=== PATIENT | female | born 1945 | race Caucasian/White ===

== ENCOUNTER 2020-12-09 08:43 | Inpatient (IN) | payer MEDICARE, OTHER ==
[2020-12-09] VITALS (10 sets, daily range): BP systolic 122–158; BP diastolic 58–76
[~2020-12-09] VITALS: Ht 154.9 cm; Wt 59.4 kg
[2020-12-09] MEDS ORDERED: ONDANSETRON HCL/PF 4 MG/2 ML VIAL IVP ONE (09:00)
[2020-12-09] MEDS ORDERED: IV NS 0.9% 1,000 ML BAG IV ONE ×2 (09:00→10:00)
--- NOTE | 2020-12-09 09:00 | NUR ---
[id number] HOME C/O ABDOMINAL PAIN AND HEADACHE SINCE LAST NIGHT. PT IS HYPOTENSIVE PELTS SKINNER. PATIENTS EYES CLOSED, BUT VERBALLY RESPONSIVE, SKIN PALE. PATIENT CONNECTED TO THE MONITOR.
[2020-12-09] MEDS ORDERED: ONDANSETRON HCL/PF 4 MG/2 ML VIAL ONE (09:01)
--- NOTE | 2020-12-09 09:10 | NUR ---
PATIENT IS STILL HYPOTENSIVE FLUIDS INITIATED.
--- NOTE | 2020-12-09 09:20 | NUR ---
EMERGENCY BLOOD TRANSFUSION INITIATED.
[2020-12-09 09:22] LABS: BASOPHILS % (AUTO) 0.1 % (0.0-2.0); HEMATOCRIT 29 % (33-45); HEMOGLOBIN 9.5 g/dL (11.5-14.8); LYMPHOCYTES # (AUTO) 1.2 /CMM (0.8-4.8); LYMPHOCYTES % (AUTO) 5.5 % (20.0-44.0); MEAN CORPUSCULAR HGB CONC 33 g/dl (31.0-36.0); MEAN CORPUSCULAR VOLUME 93 fL (82-100); MONOCYTES # (AUTO) 1.4 /CMM (0.1-1.30); MONOCYTES % (AUTO) 6.5 % (2.0-12.0); NEUTROPHILS # (AUTO) 19.4 /CMM (1.8-8.9); NEUTROPHILS % (AUTO) 87.9 % (43.0-81.0); PLATELET COUNT (AUTO) 236 /CMM (150-450); RED BLOOD CELL COUNT(AUTO) 3.12 MIL/uL (4.0-5.2); WHITE BLOOD COUNT (AUTO) 22.1 K/uL (4.3-11.0)
[2020-12-09 09:47] LABS: CALCIUM, SERUM 8.6 mg/dL (8.5-10.1); CARBON DIOXIDE 24 mmol/L (21-32); CHLORIDE 108 mmol/L (98-107); CREATININE 2.1 mg/dL (0.6-1.3); GLUCOSE 147 mg/dL (74-106); POTASSIUM 4.1 mmol/L (3.5-5.1); SODIUM SERUM 145 mmol/L (136-145); UREA NITROGEN, BLOOD 32 mg/dL (7-18)
--- NOTE | 2020-12-09 09:47 | NUR ---
COVID SWAB SENT.
[2020-12-09] MEDS ORDERED: ALEN35TA51 PO (09:52)
[2020-12-09] MEDS ORDERED: AIMOVIG (09:52)
[2020-12-09] MEDS ORDERED: PRED1TAB PO (09:52)
[2020-12-09] MEDS ORDERED: ASCO500C17 PO (09:52)
[2020-12-09] MEDS ORDERED: RIBO100T6 PO (09:52)
[2020-12-09] MEDS ORDERED: CHOL200010 PO (09:52)
[2020-12-09] MEDS ORDERED: METF-440 PO (09:52)
[2020-12-09] MEDS ORDERED: FLUD0.1T PO (09:52)
[2020-12-09] MEDS ORDERED: MIDO5TAB4 PO (09:52)
[2020-12-09] MEDS ORDERED: FOLI0.8T3 PO (09:52)
[2020-12-09] MEDS ORDERED: IRON PO (09:52)
[2020-12-09] MEDS ORDERED: MAGN400T8 PO (09:52)
[2020-12-09] MEDS ORDERED: APIX5TAB PO (09:52)
[2020-12-09 09:59] LABS: ALANINE AMINOTRANSFERASE 17 U/L (12-78); ALKALINE PHOSPHATASE 33 U/L (46-116); ASPARTATE AMINOTRANSFERASE 14 U/L (15-37); BILIRUBIN,DIRECT 0.1 mg/dL (0.0-0.2); BILIRUBIN,TOTAL 0.5 mg/dL (0.2-1.0); LIPASE 94 U/L (73-393); TOTAL PROTEIN, SERUM 5.2 g/dL (6.4-8.2)
[2020-12-09] MEDS ORDERED: VANCOMYCIN 1 GM in IV D5W 250 ML IV ONE (10:00)
--- NOTE | 2020-12-09 10:01 | NUR ---
PATIENT CAME BACK FROM CT.
[2020-12-09 10:24] LABS: BILIRUBIN,URINE Negative (NEGATIVE); COLOR,URINE YELLOW (YELLOW); LEUKOCYTE ESTERASE ,URINE Negative (NEGATIVE); NITRITE, URINE Negative (NEGATIVE); PH,URINE 5.5 (5.0-8.0); PROTEIN,URINE Trace mg/dl (NEGATIVE); UGLUCOSE Negative (NEGATIVE); UROBILINOGEN,URINE 0.2 EU/dL (0.2)
--- NOTE | 2020-12-09 10:25 | NUR ---
CALLED DR. LEE FOR SURGERY CONSULT.
[2020-12-09 10:31] LABS: HYALINE CASTS, URINE Few /LPF (None Seen)
[2020-12-09 10:32] LABS: BACTERIA,URINE Few /HPF (None Seen); MUCUS,URINE Moderate /LPF (None Seen); RBC,URINE 0-2 /HPF (0-2); SQUAMOUS EPITHELIAL CELL,UR Few /HPF (None Seen); WBC,URINE 0-2 /HPF (0-3)
--- NOTE | 2020-12-09 10:43 | NUR ---
PER NURSING SUP. PICC LINE NURSE WILL COME AT NOON.
--- NOTE | 2020-12-09 10:55 | NUR ---
ICU 259.
[2020-12-09] MEDS ORDERED: PROTHROMBIN COMPLEX CONCENTR 500 UNIT VIAL IV ONE (11:00)
--- NOTE | 2020-12-09 11:15 | NUR ---
REPORT GIVEN TO JARED MATIAS FOR [facility].
--- NOTE | 2020-12-09 11:15 | NUR ---
PATIENT'S WANTS TO SPEAK TO SURGEON, NO CONSENT HAS BEEN SIGNED FOR SURGERY AT THIS TIME.
[2020-12-09 11:28] LABS: HEMOGLOBIN 10.3 g/dL (11.5-14.8)
--- NOTE | 2020-12-09 11:28 | NUR ---
2ND UNIT OF PRBC STARTED. PATIENT HAS NO ADVERSE REACTION. VSS.
[2020-12-09] MEDS ORDERED: LIDOCAINE 1% INJ 50 ML MDV IJ ONE (11:29)
[2020-12-09] MEDS ORDERED: BUPIVACAINE MPF W/EPI 0.25% 30 ML VIAL ONE (11:29)
[2020-12-09] MEDS ORDERED: DEXTROSE 50%-WATER 50 ML DISP.SYRIN IV PRN (11:30)
[2020-12-09] MEDS ORDERED: ONDANSETRON HCL/PF 4 MG/2 ML VIAL IVP PRN (11:30)
[2020-12-09] MEDS ORDERED: ACETAMINOPHEN 325 MG TABLET PO PRN (11:30)
[2020-12-09] MEDS ORDERED: IV NS 0.9% 1,000 ML IV ONE ×2 (11:30→15:30)
[2020-12-09] MEDS ORDERED: NOREPINEPHRINE 8 MG in IV NS 0.9% 250 ML IV PRN (11:30)
--- NOTE | 2020-12-09 11:40 | NUR ---
DR. LEE AT BEDSIDE, EXPLAINED PROCEDURES. PATIENT STATED, ROSE MARIE CHAVEZ CAN SIGN CONSENT FOR HER. PATIENT PREP FOR SURGERY.
--- NOTE | 2020-12-09 11:51 | NUR ---
PATIENT A/OX4, VERBALLY RESPONSIVE, NO DISTRESS NOTED. PATIENT TRANSFERRED TO SURGERY. IN STABLE CONDITION.
--- NOTE | 2020-12-09 11:57 | NUR ---
UPDATE GIVEN TO ICU CHARGE NURSE
[2020-12-09] MEDS ORDERED: FENTANYL PF 100MCG/2ML AMPUL ONE (12:08)
[2020-12-09] MEDS ORDERED: NOREPINEPHRINE 8 MG in IV NS 0.9% 242 ML IV PRN (12:30)
[2020-12-09] MEDS ORDERED: BACITRACIN ZINC OINT PACKET 1 EA PACKET TP ONE (13:37)
[2020-12-09] MEDS ORDERED: BACITRACIN ZINC OINT (15 GM) 15 GM TUBE TP ONE (13:38)
[2020-12-09] MEDS ORDERED: PIPERACILLIN /TAZOBACTAM 3.375 G in IV D5W 50 ML IV SCH (14:00)
[2020-12-09] MEDS: PIPERACILLIN /TAZOBACTAM 2.25 G in IV D5W 50 ML IV SCH ×2 (14:53→19:59)
[2020-12-09] MEDS: BLOOD SUGAR DIAGNOSTIC 1 EACH STRIP IN SCH ×2 (14:59→17:55)
[2020-12-09] MEDS ORDERED: MORPHINE SULFATE INJ 2 MG/ML DISP.SYRIN IV PRN (15:30)
--- NOTE | 2020-12-09 16:00 | NUR ---
RN NOTE 1440: Admitted patient from OR, directly from ED. SP ex lap, with medial abd incision with dressing CDI. VSS, SR 70-80's. SP 2 PRBC per report. Patient is awake, A/Ox4. 3 PIVs intact. Started on IVF as ordered. Zosyn given as ordered. SCD on BLE. 1520: With c/o 7/10 abd pain from incision site, obtained Morphine 1 q4, given as ordered. at bedside, aware for the POC. CM following up for the transfer. Awaiting Sx noted, followed up with Dr. Oneil to initiate transfer, per CM possible going to [facility]. 1600: Patient is resting, relived from pain from Morphine.
[2020-12-09] MEDS ORDERED: MORPHINE SULFATE INJ 2 MG/ML DISP.SYRIN IV ONE (16:30)
--- NOTE | 2020-12-09 16:36 | NUR ---
12/09: All available clinicals sent to transfer center [facility]: FAX: [phone] TEL: [phone] ALIYAH MARTINS: FAX: [phone] TEL: [phone] [facility] FAX: [phone] [facility] [phone] TEL: [phone] FYI: IF ANY OF THE FOLLOWING HOSPITALS CALL AND ACCEPT THE PATIENT AND HAS AN ACCEPTING MD AT THE HOSPITAL AND A BED PLEASE CHOOSE THAT HOSPITAL FIRST CHOICE TO EXPEDITE TRANSFER. THEN CALL [facility] [phone] AND ACTIVATE THE WILL CALL [facility] AND TELL THEM THE DESTINATION OF THE PATIENT AND THE PATIENTS BED NUMBER. Addendum: 12/09/20 at 1638 by NELLY DE LEON RN Amended: Links added.
[2020-12-09 17:14] LABS: HEMOGLOBIN 14.2 g/dL (11.5-14.8)
[2020-12-09 17:15] LABS: BASOPHILS % (AUTO) 0.1 % (0.0-2.0); HEMATOCRIT 44 % (33-45); HEMOGLOBIN 14.2 g/dL (11.5-14.8); LYMPHOCYTES # (AUTO) 0.6 /CMM (0.8-4.8); LYMPHOCYTES % (AUTO) 4.8 % (20.0-44.0); MEAN CORPUSCULAR HGB CONC 33 g/dl (31.0-36.0); MEAN CORPUSCULAR VOLUME 93 fL (82-100); MONOCYTES % (AUTO) 8.4 % (2.0-12.0); NEUTROPHILS # (AUTO) 10.8 /CMM (1.8-8.9); NEUTROPHILS % (AUTO) 86.7 % (43.0-81.0); PLATELET COUNT (AUTO) 170 /CMM (150-450); RED BLOOD CELL COUNT(AUTO) 4.69 MIL/uL (4.0-5.2); WHITE BLOOD COUNT (AUTO) 12.5 K/uL (4.3-11.0)
[2020-12-09 17:20] LABS: CALCIUM, SERUM 7.5 mg/dL (8.5-10.1); CARBON DIOXIDE 24 mmol/L (21-32); CHLORIDE 110 mmol/L (98-107); CREATININE 1.6 mg/dL (0.6-1.3); GLUCOSE 156 mg/dL (74-106); MAGNESIUM 1.8 mg/dL (1.8-2.4); PHOSPHORUS 3.6 mg/dL (2.5-4.9); POTASSIUM 4.3 mmol/L (3.5-5.1); SODIUM SERUM 146 mmol/L (136-145); UREA NITROGEN, BLOOD 26 mg/dL (7-18)
[2020-12-09] MEDS: HYDROMORPHONE 1 MG/1 ML DISP.SYRIN IV PRN ×2 (18:18→22:40)
--- NOTE | 2020-12-09 18:20 | NUR ---
RN NOTE Patient again c/o 12/31 pain, informed [facility] REGIONAL OFFICE COORDINATOR with order to change Morphine to Dilaudid 0.5, given as ordered. Spoke with Dr. Sandhu from [facility], questions were answered, she said, she will call again if ever accepted.
--- NOTE | 2020-12-09 19:30 | NUR ---
ICU/RECORDS MANAGEMENT SPECIALIST RECIEVED REPORT FROM DAY NURSE. SEE FLOWSHEET FOR ASSESSMENT. SKIN ISSUES ARE ADDRESSED ON THE FLOWSHEET ALONG WITH INTERVENTIONS TO THESE. PT WAS TURNED AND REPOSITIONED FOR COMFORT AND CARE. NO ACUTE DISTRESS SEEN AT THIS TIME. WILL CONTINUE TO MONITOR THIS PT.
[2020-12-09] MEDS: MIDODRINE HCL (5MG) 5 MG TABLET PO SCH (21:00)
--- NOTE | 2020-12-09 21:00 | NUR ---
ICU/LICENSING WORKER REPORT GIVEN TO REGISTRY NURSE ARLENE Garcia FOR CONTINUITY OF CARE.
[2020-12-09] MEDS ORDERED: METFORMIN 500 MG TABLET PO SCH (22:00)
[2020-12-10] VITALS (19 sets, daily range): BP systolic 106–151; BP diastolic 61–82
[2020-12-10] MEDS: BLOOD SUGAR DIAGNOSTIC 1 EACH STRIP IN SCH ×4 (00:14→18:34)
[2020-12-10] MEDS: INSULIN REGULAR, HUMAN 100 UNIT/ML 3 ML VIAL SQ PRN ×4 (00:18→18:35)
[2020-12-10 00:42] LABS: HEMOGLOBIN 12.8 g/dL (11.5-14.8)
[2020-12-10] MEDS: PIPERACILLIN /TAZOBACTAM 2.25 G in IV D5W 50 ML IV SCH ×3 (02:13→15:02)
[2020-12-10] MEDS: HYDROMORPHONE 1 MG/1 ML DISP.SYRIN IV PRN ×3 (03:25→18:22)
--- NOTE | 2020-12-10 03:44 | NUR ---
patient awake alert c/o of post surgical pain upper rt. side aching medicated at 2240 given dilaudid 0.5 mg ivp. ns end 0330. patient received 02 dose zosyn2.25 gm ivpb. patient sinus on monitor patient drsg dry intact. has f/c draining yellow urine no bowel movement. patient has lt. 20 ga left hand hep locked and upper left arm 20 ga patient with ns 75 hr. patient temp 98.8 2400 blood sugar 133 covered with 2 units reg. insulin s.q. patient given 0325 dilaudid for upper rt side of abdomen pain. 0.5 mg ivp given 0400 patient sleeping quietly.
[2020-12-10 04:35] LABS: HEMATOCRIT 36 % (33-45); HEMOGLOBIN 12.2 g/dL (11.5-14.8); LYMPHOCYTES # (AUTO) 0.8 /CMM (0.8-4.8); LYMPHOCYTES % (AUTO) 6.6 % (20.0-44.0); MEAN CORPUSCULAR HGB CONC 34 g/dl (31.0-36.0); MEAN CORPUSCULAR VOLUME 91 fL (82-100); MONOCYTES # (AUTO) 1.2 /CMM (0.1-1.30); MONOCYTES % (AUTO) 9.8 % (2.0-12.0); NEUTROPHILS # (AUTO) 10.6 /CMM (1.8-8.9); NEUTROPHILS % (AUTO) 83.6 % (43.0-81.0); PLATELET COUNT (AUTO) 157 /CMM (150-450); WHITE BLOOD COUNT (AUTO) 12.7 K/uL (4.3-11.0)
[2020-12-10 04:57] LABS: CHOLESTEROL 102 mg/dL (<200); HDL CHOLESTEROL 48 mg/dL (40-60); LDL 42 mg/dL (0-99); THYROID STIMULATING HORMONE 0.412 uIU/mL (0.358-3.74); TRIGLYCERIDES 44 mg/dL (30-150)
[2020-12-10 05:02] LABS: ALANINE AMINOTRANSFERASE 13 U/L (12-78); ALBUMIN 2.6 g/dL (3.4-5.0); ALKALINE PHOSPHATASE 29 U/L (46-116); ASPARTATE AMINOTRANSFERASE 24 U/L (15-37); BILIRUBIN,TOTAL 1.1 mg/dL (0.2-1.0); CALCIUM, SERUM 7.1 mg/dL (8.5-10.1); CARBON DIOXIDE 24 mmol/L (21-32); CHLORIDE 112 mmol/L (98-107); CREATININE 1.4 mg/dL (0.6-1.3); GLUCOSE 133 mg/dL (74-106); MAGNESIUM 1.8 mg/dL (1.8-2.4); PHOSPHORUS 3.3 mg/dL (2.5-4.9); POTASSIUM 4.1 mmol/L (3.5-5.1); SODIUM SERUM 143 mmol/L (136-145); TOTAL PROTEIN, SERUM 4.9 g/dL (6.4-8.2); UREA NITROGEN, BLOOD 23 mg/dL (7-18)
--- NOTE | 2020-12-10 06:39 | NUR ---
blood sugar 123 this a.m no insulin given
--- NOTE | 2020-12-10 07:30 | NUR ---
OPENING NOTE: REPORT RECEIVED FROM ARLENE MATIAS. PT ALERT OX4. PT C/O NOT SLEEPING WELL LAST NIGHT. FRAZIER CATHETER IN PLACE, DRAINING WITHOUT DIFFICULTY. MIDLINE ABDOMINAL INCISION WITH SURGICAL DRESSING CDI. 2L NC, SATS 96%. PT REFUSES TO BE REPOSITIONED D/T HEADACHE. POTENTIAL TRANSFER TO [facility], [facility] ACCEPTED, ROOM PENDING. PT CHECKED ON HOURLY AND PRN BY NURSING STAFF.
[2020-12-10 08:08] LABS: HEMOGLOBIN 12.4 g/dL (11.5-14.8)
--- NOTE | 2020-12-10 08:18 | NUR ---
PER DR SPENCER, PT IS STRICT NPO, ALL PO MEDS WILL BE HELD THIS AM
[2020-12-10] MEDS: MIDODRINE HCL (5MG) 5 MG TABLET PO SCH (08:20)
[2020-12-10] MEDS ORDERED: FLUDROCORTISONE 0.1 MG TABLET PO SCH (09:00)
[2020-12-10] MEDS ORDERED: PANTOPRAZOLE 40 MG VIAL IV SCH (09:00)
[2020-12-10] MEDS ORDERED: predniSONE 1 MG TABLET PO SCH (09:00)
[2020-12-10] MEDS ORDERED: MAGNESIUM OXIDE 400 MG TABLET PO SCH (09:00)
[2020-12-10] MEDS ORDERED: FOLIC ACID 1 MG TABLET PO SCH (09:00)
[2020-12-10] MEDS ORDERED: ASCORBIC ACID 500 MG TABLET PO SCH (09:00)
[2020-12-10] MEDS ORDERED: CYANOCOBALAMIN 100 MCG TABLET PO SCH (09:00)
[2020-12-10] MEDS ORDERED: CHOLECALCIFEROL 1,000 UNIT TABLET (VIT D3) PO SCH (09:00)
[2020-12-10] MEDS ORDERED: VANCOMYCIN 0.75 GM in IV D5W 250 ML IV SCH (10:00)
--- NOTE | 2020-12-10 11:55 | NUR ---
PT REFUSED TO BE REPOSITIONED AT THIS TIME AND SINCE BEGINNING OF SHIFT. RN EXPLAINED TO PT THAT SHE COULD GET A WOUND ON HER BOTTOM IF SHE DOESN'T REPOSITION, PT STATES UNDERSTANDING AND CONTINUES TO REFUSE. PT'S AT BEDSIDE AND STATED HE UNDERSTANDS AND PT'S UP TO PATIENT IF SHE DOESN'T WANT TO REPOSITION.
[2020-12-10] MEDS ORDERED: IV D5/0.45 NACL 1,000 ML IV PRN (13:00)
[2020-12-10] MEDS ORDERED: HYDROCORTISONE SOD SUCCINATE 100 MG/2 ML VIAL IV SCH ×3 (13:00)
[2020-12-10 16:02] LABS: HEMOGLOBIN 11.9 g/dL (11.5-14.8)
--- NOTE | 2020-12-10 17:14 | NUR ---
REPORT GIVEN TO KENAN MATIAS AT [facility] AT 1615. [facility] CALLED TO SET UP DELINQUENT NOTICE MACHINE OPERATOR TIME. PT DELINQUENT NOTICE MACHINE OPERATOR TIME IS 1730. PT WILL BE GOING TO [facility] UNIT 5MN, ROOM 5458. PT AND PT'S AT BEDSIDE NOTIFIED. PT IS WORRIED ABOUT PAIN WITH TRANSPORT, RN WILL GIVE PT A DOSE OF DILAUDID PRIOR TO TRANSPORT. PT CHECKED ON HOURLY AND PRN BY NURSING STAFF.
--- NOTE | 2020-12-10 18:45 | NUR ---
PT LEFT BY AMBULANCE TO [facility]. TOOK ALL PERSONAL BELONGINGS. FRAZIER CATHETER EMPTIED PRIOR TO LEAVING. DILAUDID GIVEN PRIOR TO LEAVING PER PT REQUEST. PT LEFT PRIOR TO REASSESS TIME. PT CHECKED ON HOURLY AND PRN BY NURSING STAFF.
[2020-12-11] MEDS ORDERED: VANCOMYCIN 0.75 GM in IV D5W 250 ML IV SCH (04:00)
[2020-12-11] MEDS ORDERED: HYDROCORTISONE SOD SUCCINATE 100 MG/2 ML VIAL IV SCH (09:00)
[2020-12-12] MEDS ORDERED: ALENDRONATE 35 MG TABLET PO SCH (09:00)
== END 2020-12-10 18:45 | disposition short-term general hospital (02) | DRG 335 ==
LOC: ER 08:45 → ICU 11:52
PROVIDERS: ADMIT Registered Nurse; ATTEND Registered Nurse
PROC: 0D9 Gastrointestinal System, Drainage (ICD-10-PCS; principal; 2020-12-09)
PROC: 0DNK0ZZ Release Ascending Colon, Open Approach (ICD-10-PCS; 2020-12-09)
PROC: 0DNL0ZZ Release Transverse Colon, Open Approach (ICD-10-PCS; 2020-12-09)
PROC: 0DNH0ZZ Release Cecum, Open Approach (ICD-10-PCS; 2020-12-09)
PROC: 30233N1 Transfusion of Nonautologous Red Blood Cells into Peripheral Vein, Percutaneous Approach (ICD-10-PCS; 2020-12-09)
DX: K66.1 Hemoperitoneum (principal); N17.0 Acute kidney failure with tubular necrosis; D84.9 Immunodeficiency, unspecified; M31.30 Wegener's granulomatosis without renal involvement; D62 Acute posthemorrhagic anemia; E87.2 Acidosis; R57.9 Shock, unspecified; Z79.84 Long term (current) use of oral hypoglycemic drugs; I48.91 Unspecified atrial fibrillation; Z79.899 Other long term (current) drug therapy; Z79.01 Long term (current) use of anticoagulants; G43.909 Migraine, unspecified, not intractable, without status migrainosus; E11.9 Type 2 diabetes mellitus without complications; D50.9 Iron deficiency anemia, unspecified; Z86.718 Personal history of other venous thrombosis and embolism; Z86.711 Personal history of pulmonary embolism; Z82.5 Family history of asthma and other chronic lower respiratory diseases; Z79.52 Long term (current) use of systemic steroids; M85.80 Other specified disorders of bone density and structure, unspecified site; K80.20 Calculus of gallbladder without cholecystitis without obstruction; K57.30 Diverticulosis of large intestine without perforation or abscess without bleeding; Z20.822 Contact with and (suspected) exposure to COVID-19
CPT/HCPCS: 36415; 70450-TC; 71045-TC; 80048-TC; 80053-TC; 80061-TC; 80076-TC; 81001; 82533; 82962-TC; 83605-TC; 83690-TC; 83735-TC; 84100-TC; 84443-TC; 84484-TC; 85025-TC; 85027-TC; 85610-TC; 85730-TC; 86850-TC; 87040-TC; 87081-TC; 87086-TC; 93970-TC; C1751; C9113; C9132; C9803; G0378; J0330; J0690; J1100; J1170; J1720; J1815; J2270; J2405; J2543; J2704; J3010; J3370; J3490; J7030; J7050; J7060; J7512; P9016